=== PATIENT | female | born 1995 | race Caucasian/White ===

== ENCOUNTER 2017-04-19 02:46 | Emergency (ER) | payer OTHER ==
[~2017-04-19] VITALS: Ht 157.5 cm; Wt 68.0 kg
[~2017-04-19 02:46] MED LIST: BCPILLS PO; ESCI1TAB10 PO
[2017-04-19 02:54] VITALS: TEMP 36.5; Ht 157.5 cm; Wt 68.0 kg
[2017-04-19] MEDS ORDERED: SODIUM CHLORIDE 0.9% 1000ML 1,000 ML IV STA (04:01)
[2017-04-19] MEDS ORDERED: ONDANSETRON 8 MG/54 ML D5W IV STA (04:01)
[2017-04-19 04:17] LABS: BASO % 0.2 %; BASO ABS # 0.02 K/uL (0-0.2); COMPLETE YES; EOS % 0.9 %; HEMATOCRIT 40.6 % (37-47); IG% 0.2 %; LYMPH % 11.9 %; LYMPH ABS # 1.01 K/uL (1.2-3.4); MEAN CELL VOLUME 84.1 fL (80-100); MEAN CORPUSCULAR HEMOGLOBIN 29.2 pg (25-34); MEAN CORPUSCULAR HGB CONC 34.7 g/dl (32-36); MONO % 6.6 %; NEUT % 80.2 %; PLATELET COUNT 267 K/uL (130-400); RED BLOOD COUNT 4.83 M/uL (4.2-5.4); WHITE BLOOD COUNT 8.52 K/uL (4.8-10.8)
[2017-04-19 04:21] LABS: PREG INTERNAL NEGATIVE QC NEG CLEAR BACKGROUND; PREG INTERNAL POSITIVE QC POS CONTROL LINE
[2017-04-19 04:33] LABS: BUN/CREATININE RATIO 15.6 (10-20); CALCIUM 8.7 mg/dl (8.5-10.1); CREATININE 0.68 mg/dl (0.60-1.20); POTASSIUM 3.7 mmol/L (3.5-5.1)
[2017-04-19 04:35] LABS: URINE APPEARANCE CLEAR (CLEAR); URINE BILIRUBIN NEG (NEG); URINE COLOR YELLOW; URINE EPITHELIAL CELL AUTO >30 /lpf (0-5); URINE NITRITE NEG (NEG); URINE PH >= 9.0 (4.5-7.5); URINE SPECIFIC GRAVITY 1.026 (1.000-1.030); UROBILINOGEN NEG (NEG)
[2017-04-19 04:39] LABS: MANUAL MICROSCOPIC REQUIRED? NO; REVIEW REQ? YES; SULFASALICYLIC ACID NEG (NEG)
--- NOTE | 2017-04-19 05:43 | EMERGENCY ROOM VISIT NOTE ---
History Report prepared by Macrina: Shad Choi Under the Supervision of: Dr. Krys Jennings D.O. First contact with patient: 03:49 Chief Complaint: VOMITING Stated Complaint: VOMITING Nursing Triage Summary: c/o nausea and vomitting for 4 hrs with one bout of diarrhea History of Present Illness The patient is a 21 year old female who presents to the Emergency Room with complaints of persistent vomiting beginning six hours ago hours ago. She also complains of nausea and diarrhea. She states that she is unable to keep down any food or drink. The patient notes that she was drinking alcohol during the day. She notes that she has problems with breathing through her nose for which she has seen ENT physicians, but this makes breathing while vomiting difficult. The patient denies any rash, cough, fevers, or chills. She denies any known sick contacts. She denies eating anything abnormal today. The patient is on Lexapro for anxiety. She denies any recent medication changes. She denies any chance of . The patient has no history of abdominal surgery. Source of History: patient Onset: Six hours ago Quality: other (vomiting) Timing: other (persistent) Associated Symptoms: + nausea, + diarrhea, No fevers, No chills, No cough, No rash Review of Systems See HPI for pertinent positives & negatives. A total of 10 systems reviewed and were otherwise negative. Past Medical & Surgical Medical Problems: (1) Concussion Family History Migraine headaches Social History Smoking Status: Never Smoker Alcohol Use: occasionally Marital Status: single Housing Status: lives with friends Occupation Status: [employer] student Current/Historical Medications Scheduled Control Pills ( Control Pills), 1 TAB PO DAILY Escitalopram Oxalate (Lexapro), 20 MG PO DAILY Allergies Coded Allergies: Penicillins (Verified Allergy, Unknown, unknown, 04/19/17) Physical Exam Vital Signs Date Time Temp Pulse Resp B/P (MAP) Pulse Ox O2 Delivery O2 Flow Rate FiO2 04/19/17 06:08 75 18 110/60 98 Room Air 04/19/17 04:56 78 18 109/48 99 Room Air 04/19/17 04:21 82 18 96/49 99 Room Air 04/19/17 02:54 36.5 96 18 119/79 99 Room Air Physical Exam GENERAL: alert, well appearing, well nourished, no distress, non-toxic EYE EXAM: normal conjunctiva, PERRL and EOM's grossly intact OROPHARYNX: no exudate, no erythema, lips, buccal mucosa, and tongue normal and mucous membranes are moist NECK: supple, no nuchal rigidity, no adenopathy, non-tender LUNGS: Clear to auscultation. Normal chest wall mechanics HEART: no murmurs, S1 normal and S2 normal ABDOMEN: abdomen soft, non-tender, normo-active bowel sounds, no masses, no rebound or guarding. BACK: Back is symmetrical on inspection and there is no deformity, no midline tenderness, no CVA tenderness. SKIN: no rashes and no bruising UPPER EXTREMITIES: upper extremities are grossly normal. LOWER EXTREMITIES: No pitting edema. NEURO EXAM: Normal sensorium, cranial nerves II-XII grossly intact, normal speech, no gross weakness of arms, no 5 weakness of legs. Medical Decision & Procedures ER Provider Diagnostic Interpretation: One View Chest X-ray interpreted by me: No effusion. No cardiomegaly. No focal infiltrate. No pulmonary edema. No wide mediastinum KUB interpreted by me: No free air. No definite SBO. Scattered air throughout the small and large bowel. Laboratory Results 04/19/17 03:20 Red Blood Count 4.83, Mean Corpuscular Volume 84.1, Mean Corpuscular Hemoglobin 29.2, Mean Corpuscular Hemoglobin Concent 34.7, Mean Platelet Volume 10.0, Neutrophils (%) (Auto) 80.2, Lymphocytes (%) (Auto) 11.9, Monocytes (%) (Auto) 6.6, Eosinophils (%) (Auto) 0.9, Basophils (%) (Auto) 0.2, Neutrophils # (Auto) 6.83, Lymphocytes # (Auto) 1.01, Monocytes # (Auto) 0.56, Eosinophils # (Auto) 0.08, Basophils # (Auto) 0.02 04/19/17 03:20 Test 04/19/17 03:00 04/19/17 03:20 Urine Color YELLOW Urine Appearance CLEAR (CLEAR) Urine pH >= 9.0 (4.5-7.5) Urine Specific [place] 1.026 (1.000-1.030) Urine Protein NEG (NEG) Urine Glucose (UA) NEG (NEG) Urine Ketones NEG (NEG) Urine Occult Blood NEG (NEG) Urine Nitrite NEG (NEG) Urine Bilirubin NEG (NEG) Urine Urobilinogen NEG (NEG) Urine Leukocyte Esterase NEG (NEG) Urine WBC (Auto) 1-5 /hpf (0-5) Urine RBC (Auto) 0-4 /hpf (0-4) Urine Hyaline Casts (Auto) 1-5 /lpf (0-5) Urine Epithelial Cells (Auto) >30 /lpf (0-5) Urine Bacteria (Auto) NEG (NEG) Urine Renal Epithelial Cells /lpf (0-5) White Blood Count 8.52 K/uL (4.8-10.8) Red Blood Count 4.83 M/uL (4.2-5.4) Hemoglobin 14.1 g/dL (12.0-16.0) Hematocrit 40.6 % (37-47) Mean Corpuscular Volume 84.1 fL (80-100) Mean Corpuscular Hemoglobin 29.2 pg (25-34) Mean Corpuscular Hemoglobin Concent 34.7 g/dl (32-36) Platelet Count 267 K/uL (130-400) Mean Platelet Volume 10.0 fL (7.4-10.4) Neutrophils (%) (Auto) 80.2 % Lymphocytes (%) (Auto) 11.9 % Monocytes (%) (Auto) 6.6 % Eosinophils (%) (Auto) 0.9 % Basophils (%) (Auto) 0.2 % Neutrophils # (Auto) 6.83 K/uL (1.4-6.5) Lymphocytes # (Auto) 1.01 K/uL (1.2-3.4) Monocytes # (Auto) 0.56 K/uL (0.11-0.59) Eosinophils # (Auto) 0.08 K/uL (0-0.5) Basophils # (Auto) 0.02 K/uL (0-0.2) RDW Standard Deviation 40.3 fL (36.4-46.3) RDW Coefficient of Variation 13.2 % (11.5-14.5) Immature Granulocyte % (Auto) 0.2 % Immature Granulocyte # (Auto) 0.02 K/uL (0.00-0.02) Anion Gap 7.0 mmol/L (3-11) Est Creatinine Clear Calc Drug Dose 118.3 ml/min Estimated GFR () 144.9 Estimated GFR (Non- 125.0 BUN/Creatinine Ratio 15.6 (10-20) Calcium Level 8.7 mg/dl (8.5-10.1) Total Bilirubin 0.5 mg/dl (0.2-1) Aspartate Amino Transf (AST/SGOT) 15 U/L (15-37) Alanine Aminotransferase (ALT/SGPT) 22 U/L (12-78) Alkaline Phosphatase 63 U/L (45-117) Total Protein 7.6 gm/dl (6.4-8.2) Albumin 3.8 gm/dl (3.4-5.0) Globulin 3.8 gm/dl (2.5-4.0) Albumin/Globulin Ratio 1.0 (0.9-2) Lipase 117 U/L (73-393) Human Chorionic Gonadotropin, Qual NEG (NEG) Laboratory results per my review. Medications Administered Medications (Trade) Dose Ordered Sig/Nicky Route Start Time Stop Time Status Last Admin Dose Admin Sodium Chloride 1,000 ml @ 999 mls/hr Q1H1M STAT IV 04/19/17 04:01 04/19/17 05:01 DC 04/19/17 04:14 999 MLS/HR Ondansetron HCl (Zofran 8mg Iv) 8 mg NOW STAT IV 04/19/17 04:01 04/19/17 04:03 DC 04/19/17 04:14 8 MG ED Course 0350: The patient was evaluated in room A10. A complete history and physical exam was performed. 0401: Ordered Zofran 8 mg IV, Sodium Chloride 1000 ml @ 999 mls/hr IV. 0550: Upon reevaluation, the patient is feeling better. I discussed the findings and the treatment plan with the patient. She verbalizes agreement and understanding. She was discharged home. Medical Decision Differential diagnosis: Etiologies such as gastroenteritis, food borne illness, infections, appendicitis , diverticulitis, inflammatory bowel disease, obstruction, GI bleed, biliary pathology, as well as others were entertained. Pt well appearing here despite complaints. Pt markedly improved with IVF and zofran. Labs and xrays reassuring. Did not feel pt warranted additional imaging at this time. Discussed with pt diet, hydration, sx to watch/return for , she verbalized understanding and was agreeable with plan. Medication Reconcilliation Current Medication List: was personally reviewed by me Blood Pressure Screening Patient's blood pressure: Normal blood pressure Blood pressure disposition: Did not require urgent referral Impression Primary Impression: Vomiting Additional Impression: Abdominal pain Scribe Attestation The scribe's documentation has been prepared under my direction and personally reviewed by me in its entirety. I confirm that the note above accurately reflects all work, treatment, procedures, and medical decision making performed by me. Departure Information Dispostion Home / Self-Care Referrals No Doctor, Assigned (PCP) Patient Instructions My [facility] Additional Instructions Please stay well-hydrated. Please eat a light and bland diet today until you' re feeling better. If you develop any recurrent vomiting, develop abdominal pain, diarrhea, fevers or chills, or you have any other new or concerning symptoms, please return the emergency room. Problem Qualifiers Primary Impression: Vomiting Vomiting type: unspecified Vomiting Intractability: non-intractable Nausea presence: with nausea Qualified Codes: R11.2 - Nausea with vomiting, unspecified Additional Impression: Abdominal pain Abdominal location: generalized Qualified Codes: R10.84 - Generalized abdominal pain
[2017-04-19 06:08] VITALS: BP 110/60; PULSE 75; O2SAT 98
--- NOTE | 2017-04-19 06:45 | DIAGNOSTIC IMAGING REPORT ---
ABDOMEN 2VIEW W/PA CHEST RTN CLINICAL HISTORY: abd pain, n/v pain COMPARISON STUDY: No previous studies for comparison. FINDINGS: Negative chest. Lungs are clear. Mild nonobstructive small bowel ileus. Several air-filled loops small bowel. No secondary signs of free air. IMPRESSION: Mild nonobstructive ileus. Negative chest. The above report was generated using voice recognition software. It may contain grammatical, syntax or spelling errors. Electronically signed by: Francisco Alvarez M.D. 04/19/2017 6:44 AM Dictated Date/Time: 04/19/2017 6:44 AM
== END 2017-04-19 06:10 | disposition home or self-care (01) ==
LOC: C.EDB 02:47 → C.EDA 06:10
DX: R11.2 Nausea with vomiting, unspecified (principal); R10.84 Generalized abdominal pain